=== PATIENT | male | born 1950 | race Caucasian/White ===

== ENCOUNTER → 2016-11-02 | Outpatient (REF) | payer OTHER | LOC: M LAB REF 13:50 | PROVIDERS: ATTEND Internal Medicine | DX: M25.50 Pain in unspecified joint (principal); R25.2 Cramp and spasm ==

== ENCOUNTER → 2024-01-04 | Outpatient (REF) | payer MEDICARE ==
[2024-01-04 13:19] LABS: HEMATOCRIT 42.3 % (42.0-52.0); MEAN CORPUSCULAR HEMOGLOBIN 30.8 pg (27.0-33.0); MEAN CORPUSCULAR HGB CONC 33.1 g/dl (32.0-36.5); MEAN CORPUSCULAR VOLUME 93.2 fl (80.0-96.0); PLATELET COUNT, AUTOMATED 174 10^3/uL (150-450); RED BLOOD COUNT 4.54 10^6/uL (4.30-6.10); WHITE BLOOD COUNT 6.8 10^3/uL (4.0-10.0)
[2024-01-04 13:46] LABS: ATYPICAL LYMPH 6 % (0-5); BASOPHILS 3 % (0-1); EOSINOPHILS 2 % (0-3); LYMPHOCYTES 23 % (16-44); MONOCYTES 12 % (0-5); NEUTROPHILS 54 % (28-66); PLATELET ESTIMATE NORMAL (NORMAL)
[2024-01-04 13:49] LABS: ANISOCYTOSIS 1+
[2024-01-04 13:50] LABS: TEAR DROP CELLS 1+
[2024-01-04 13:53] LABS: HEPATITIS B SURFACE ANTIBODY NEGATIVE (POSITIVE)
[2024-01-04 14:05] LABS: HEPATITIS B SURFACE ANTIGEN NEGATIVE (NEGATIVE)
[2024-01-04 14:26] LABS: HEPATITIS C VIRUS ABY INDEX 0.02 INDEX (<0.8)
[2024-01-05 11:48] LABS: HEPATITIS B CORE ANTIBODY IGG NON-REACTIVE (NON-REACTIVE)
[2024-01-06 14:14] LABS: QuantiFERON-TB Gold Plus NEGATIVE (NEGATIVE)
== END ==
LOC: M LAB REF 12:27
PROVIDERS: ATTEND Internal Medicine
DX: L40.0 Psoriasis vulgaris (principal); Z11.59 Encounter for screening for other viral diseases

== ENCOUNTER 2024-01-27 06:35 | Day surgery (SDC) | payer MEDICARE ==
[~2024-01-27] VITALS: Ht 165.1 cm; Wt 94.3 kg
[~2024-01-27 06:35] MED LIST: ASPI81TA26 PO; ATOR1TAB19 PO; BETA1OI TOP; CALC0.004 TOP; CIDA500T2 PO; FARX1TAB3 PO; JARD1TAB3 PO; KP F1200 PO; MAGN400C PO; MENSCAP PO; METF-877 PO; METF500T13 PO; MONT10TA97 PO; OLME40TA PO; PIOG1TAB36 PO; [UNRECOGNIZED DRUG - CODE] TOP
[2024-01-27] MEDS: NS 1,000 ML IV ONE (06:58)
[2024-01-27] MEDS ORDERED: LIDOCAINE 2% MDV 20ML VIAL As Ordered ONE (07:27)
[2024-01-27] MEDS ORDERED: fentaNYL 100 MCG/2 ML INJECTION As Ordered ONE (07:27)
[2024-01-27] MEDS ORDERED: propofoL 200 MG/20 ML VIAL As Ordered ONE (07:27)
[2024-01-27 08:35] VITALS: TEMP 97
[2024-01-27 08:55] VITALS: BP 112/56; O2SAT 94
== END 2024-01-27 08:56 | disposition home or self-care (01) ==
LOC: M OPP 06:35
PROVIDERS: ATTEND Surgery
DX: K57.30 Diverticulosis of large intestine without perforation or abscess without bleeding (principal); E11.9 Type 2 diabetes mellitus without complications; F10.10 Alcohol abuse, uncomplicated; Z87.891 Personal history of nicotine dependence; Z79.1 Long term (current) use of non-steroidal anti-inflammatories (NSAID); Z79.899 Other long term (current) drug therapy
CPT/HCPCS: G0121; J3010

== ENCOUNTER → 2024-02-01 | Outpatient (REF) | payer MEDICARE ==
[2024-02-01 13:50] LABS: URIC ACID 6.1 MG/DL (3.7-9.2)
== END ==
LOC: M LAB REF 13:20
PROVIDERS: ATTEND Internal Medicine
DX: L03.115 Cellulitis of right lower limb (principal)

== ENCOUNTER → 2025-05-15 | Outpatient (REF) | payer MEDICARE ==
[2025-05-18 12:53] LABS: RUBEOLA IgG ANTIBODY > 300.00 AU/mL (>16.49)
== END ==
LOC: M LAB REF 12:00
PROVIDERS: ATTEND Internal Medicine
DX: Z01.84 Encounter for antibody response examination (principal)